=== PATIENT | male | born 1985 | race African-American/Black ===

== ENCOUNTER 2020-09-04 21:50 | Emergency (ER) | payer BC ==
[~2020-09-04] VITALS: Ht 190.5 cm; Wt 81.6 kg
[2020-09-04 21:50] VITALS: BP 140/84
[2020-09-04] MEDS ORDERED: LORAZEPAM INJ 2 MG/ML VIAL ONE (22:55)
[2020-09-04] MEDS ORDERED: LORAZEPAM INJ 2 MG/ML VIAL IM ONE (23:00)
[2020-09-05] MEDS ORDERED: LORAZEPAM 1 MG TABLET PO ONE
[2020-09-05] MEDS ORDERED: LORAZEPAM 1 MG TABLET ONE (00:01)
[2020-09-05] MEDS ORDERED: LORA-259 PO (00:17)
== END 2020-09-05 00:30 | disposition home or self-care (01) ==
LOC: ER 21:54
DX: F41.9 Anxiety disorder, unspecified (principal); F42.9 Obsessive-compulsive disorder, unspecified
CPT/HCPCS: 96372; 99283; J2060